=== PATIENT | male | born 1990 | race Caucasian/White ===

== ENCOUNTER 2018-07-16 14:14 | Inpatient (IN) | payer MEDICAID ==
[~2018-07-16] VITALS: Ht 172.7 cm; Wt 67.1 kg
[2018-07-16 14:18] VITALS: BP 124/66
[2018-07-16] MEDS ORDERED: NACL 0.9% 1,000 ML IV SCH (14:25)
--- NOTE | 2018-07-16 14:25 | NUR ---
27 YO M BIB MOTHER W/ C/O DIARRHEA X 3 DAYS. REPORTS GOING BETWEEN 5-8 TIMES A DAY. STATES IT IS SEVERE, AND EXCESSIVE. REPORTS DIZZINESS AND FEELING SHAKEY. PT REPORTS BL LOWER ABD PAIN THAT IS 5/10 CRAMPING THAT INTENSIFIES WHEN THE DIARRHEA OCCURS. REPORTS IT IS VERY THIN, WATERY, CLEAR DIARRHEA. NO FOUL-SMELL TO IT. DENIES ANY BLEEDING IN THE FECES. AFEBRILE AT THIS TIME. PT. REPORTS " I HAD A FEVER 3 DAYS AGO WHEN I STARTED FEELING SICK BUT NOT ANYMORE". ER MD MADE AWARE. SAFETY PRECAUTIONS IMPLEMENTED.WILL CONTINUE TO MONITOR.
--- NOTE | 2018-07-16 14:57 | NUR ---
PT. UNABLE TO PROVIDE URINE SAMPLE AT THIS TIME
[2018-07-16 15:20] LABS: BASOPHILS % (AUTO) 0.4 % (0.0-2.0); EOSINOPHILS % (AUTO) 0.1 % (0.0-4.0); HEMATOCRIT 44.1 % (36-52); HEMOGLOBIN 14.8 g/dL (12.0-18.0); LYMPHOCYTES # (AUTO) 3.1 K/uL (2.0-11.5); LYMPHOCYTES % (AUTO) 25.3 % (20.5-51.1); MEAN CORPUSCULAR HEMOGLOBIN 29 pg (27-31); MEAN CORPUSCULAR HGB CONC 34 g/dL (33-37); MEAN CORPUSCULAR VOLUME 86.3 fL (80-94); MONOCYTES # (AUTO) 1.5 K/uL (0.8-1.0); NEUTROPHILS # (AUTO) 7.7 K/uL (1.8-7.7); NEUTROPHILS % (AUTO) 62.2 % (42.2-75.2); PLATELET COUNT (AUTO) 254 K/uL (140-450); RED CELL DISTRIBUTION WIDTH 13.9 % (11.6-13.7); WHITE BLOOD COUNT (AUTO) 12.4 K/uL (4.8-10.8)
[2018-07-16] MEDS ORDERED: NACL 0.9% 1,500 ML IV ONE (15:55)
[2018-07-16] MEDS ORDERED: metroNIDAZOLE 500 MG/NS PREMIX 100 ML IV ONE (15:55)
[2018-07-16 15:56] LABS: CARBON DIOXIDE 26.3 mmol/L (21-32); CREATININE 0.9 mg/dL (0.7-1.3); POTASSIUM 3.3 mmol/L (3.5-5.1)
--- NOTE | 2018-07-16 16:00 | NUR ---
PT. RESTING COMFORTABLY IN BED, RR EVEN AND UNLABORED.VSS. WILL CONTINUE TO MONITOR.
[2018-07-16 16:02] LABS: ALBUMIN 2.7 g/dL (3.4-5.0); TOTAL BILIRUBIN 0.8 mg/dL (0.0-1.0)
[2018-07-16] MEDS ORDERED: DOCUSATE SODIUM 100 MG GELCAP PO PRN (16:05)
[2018-07-16] MEDS ORDERED: HYDROcodone/APAP 5/325 MG 1 TAB TAB PO PRN (16:05)
[2018-07-16] MEDS ORDERED: ONDANSETRON 4 MG/2 ML VIAL IM/IVP PRN (16:05)
[2018-07-16] MEDS ORDERED: ACETAMINOPHEN 325 MG TAB PO PRN (16:05)
--- NOTE | 2018-07-16 16:36 | NUR ---
PT TAKEN TO FLOOR BY ROSALVA CYR AND EMT MADIHA
--- NOTE | 2018-07-16 16:44 | NUR ---
Patient will be admitted to care of DR. DURANT . Admited to TELE . Will go to room 104B. Belongings list completed. Report to YARI Felipe RN .
--- NOTE | 2018-07-16 16:45 | NUR ---
RECEIVED PT FROM ER NURSE FLORI, PT AWAKE, ALERT. ON ROOM AIR, NO S/S OF RESPIRATORY DISTRESS NOTED. PT HAS IV TO RIGHT AC # 20 RUNNING FLAGYL AT 100 MLS/ HR AND 0.9 NS BOLUS OPEN WIDE ( PER FLORI, THIS IS THE SECOND BAG OF BOLUS). NO URINE SAMPLE YET, WILL WAIT FOR PT TO GET SOME URINE SAMPLE. CALL LIGHT IN REACH, INTRODUCED MYSELF, ORIENTED PT ENVIRONMENT, WILL CONTINUE TO MONITOR PT.
[2018-07-16] MEDS ORDERED: POTASSIUM CHLORIDE 10 MEQ TABER PO SCH (17:00)
[2018-07-16] MEDS: NACL 0.9% 1,000 ML IV SCH (17:20)
[2018-07-16 17:30] LABS: CHOL/HDL RATIO 10.9 (1-4.5); MAGNESIUM 2.2 mg/dL (1.8-2.4); THYROID STIMULATING HORMONE 1.23 uIU/mL (0.34-3.74)
--- NOTE | 2018-07-16 17:30 | NUR ---
PT LEFT FOR CT PER TECH VIA WHEELCHAIR
[2018-07-16] MEDS ORDERED: MARA150T PO (17:35)
[2018-07-16] MEDS ORDERED: NOR100 PO (17:35)
[2018-07-16] MEDS ORDERED: FENO145T36 PO (17:35)
[2018-07-16] MEDS ORDERED: [UNRECOGNIZED DRUG - CODE] PO (17:35)
[2018-07-16] MEDS ORDERED: DOLU50TA PO (17:35)
--- NOTE | 2018-07-16 17:45 | NUR ---
PT BACK TO ROOM.
[2018-07-16 18:00] VITALS: BP 103/64
--- NOTE | 2018-07-16 18:00 | NUR ---
URINE SAMPLE AND MRSA NARES COLLECTED AND SENT TO LAB.
[2018-07-16 18:26] LABS: BARBITURATE, URINE NEG. ng/ml (NEG <=200); BENZODIAZEPINE, URINE NEG. ng/mL (NEG <=200); CANNABINOID, URINE NEG. ng/mL (NEG <=50); COCAINE, URINE NEG. ng/mL (NEG <=300); OPIATE, URINE NEG. ng/mL (NEG <=2000); PHENCYCLIDINE SCREEN,URINE NEG. ng/mL (NEG <=25)
[2018-07-16 18:29] LABS: APPEARANCE,URINE CLEAR (CLEAR); BILIRUBIN,URINE SMALL (NEGATIVE); BLOOD, URINE SMALL (NEGATIVE); COLOR,URINE YELLOW (YELLOW); LEUKOCYTE ESTERASE ,URINE NEGATIVE (NEGATIVE); NITRITE, URINE NEGATIVE (NEGATIVE); UGLUCOSE NEGATIVE (NEGATIVE)
[2018-07-16 18:32] LABS: RBC,URINE 3-10 (FEW) /HPF (0-5); WBC,URINE NONE SEEN /HPF (0-5)
--- NOTE | 2018-07-16 18:56 | NUR ---
PT STAYING IN BED, NO S/S OF RESPIRATORY DISTRESS NOTED. PT STATED HE IS FINE AT THIS MOMENT.
--- NOTE | 2018-07-16 19:30 | NUR ---
RECEIVED PT FROM AM SHIFT NURSE YARI. PT ON TELE. PT IS AWAKE, ALERT, OX4, AMBULATORY . PT ON NPO EXCEPT MEDS. PT HAS NO SIGNS OF RESPIRATORY DISTRESS. PT DOES NOT C/O PAIN. PT SAID HE GOES TO THE BATHROOM FROM TIME TO TIME BECAUSE OF DIARRHEA. WITH IVF ON R AC G 20, INFUSING WELL.POC DISCUSSED AND REVIEWED WITH PT. VERBALIZED UNDERSTANDING. PT ORIENTED TO UNIT, PLACED ON LOW BED AND CALL LIGHT WITHIN EASY REACH.WILL CONTINUE TO MONITOR
--- NOTE | 2018-07-16 19:31 | NUR ---
HIV POSITIVE. WILL FOLLOW UP WITH NEXT SHIFT SINCE OFFICE CLOSED AT THIS TIME WITH [facility] TO GET DOCUMENTATION.
--- NOTE | 2018-07-16 20:20 | NUR ---
INFORMED ON DIET. PT WITH NEW ORDERS OF BRAT, CARRIED OUT. WILL CONTINUE TO MONITOR IF PT CAN TOLERATE BRAT PER DR'S ORDER.
[2018-07-16] MEDS: SELZENTRY PO SCH (20:58)
[2018-07-16] MEDS ORDERED: RITONAVIR 100 MG PO SCH (21:00)
[2018-07-16] MEDS ORDERED: DARUNAVIR ETHANOLATE PO SCH (21:00)
[2018-07-16] MEDS ORDERED: DOLUTEGRAVIR SODIUM 50 MG PO SCH (21:00)
[2018-07-16] MEDS ORDERED: MARAVIROC 150 MG PO SCH (21:00)
[2018-07-16] MEDS: PREZISTA 600 MG PO SCH (21:01)
[2018-07-16] MEDS: TIVICAY 50MG TAB PO SCH (21:02)
[2018-07-16] MEDS: NORVIR 100MG TAB PO SCH (21:02)
[2018-07-17] VITALS: BP 105/65
--- NOTE | 2018-07-17 | NUR ---
STOOL AND URINE SAMPLE SENT OUT TO LABORATORY. PT HAD 3X DIARRHEA OF THIS TIME.
[2018-07-17] MEDS: metroNIDAZOLE 500 MG/NS PREMIX 100 ML IV SCH ×3 (00:39→16:07)
[2018-07-17] MEDS ORDERED: LEVOFLOXACIN 500 MG/D5W PREMIX 100 ML IV SCH ×2 (01:30→21:00)
[2018-07-17] MEDS: NACL 0.9% 1,000 ML IV SCH ×3 (01:42→22:23)
[2018-07-17 04:00] VITALS: BP 110/60
--- NOTE | 2018-07-17 06:17 | NUR ---
PATIENT HAS BEEN SCREENED AND CATEGORIZED HIGH NUTRITION RISK. PATIENT WILL BE SEEN WITHIN 1-2 DAYS OF ADMISSION. 07/16/18-07/17/18 BUNNY SHELDON MS, RDN
--- NOTE | 2018-07-17 07:30 | NUR ---
RECEIVED PT ON AAOX4. NO SOB NOTED. NO C/O PAIN AT THIS TIME. IV TO RT AC PATENT AND INTACT. CHEST CLEAR. ABDOMEN SOFT, BOWEL SOUNDS PRESENT. PT ON CONTACT PRECAUTION FOR C-DIFF, WILL MONITOR FOR LOOSE STOOLS. INSTRUCTED PT TO CALL FOR ASSISTANCE, CALL LIGHT WITHIN REACH. PT VERBALIZED UNDERSTANDING.
[2018-07-17 07:33] LABS: ANION GAP 8.9 (8-16); CARBON DIOXIDE 27.7 mmol/L (21-32); CREATININE 0.6 mg/dL (0.7-1.3); POTASSIUM 3.6 mmol/L (3.5-5.1)
[2018-07-17 07:42] LABS: PHOSPHORUS 1.4 mg/dL (2.5-4.9)
[2018-07-17 08:00] VITALS: BP 104/57
--- NOTE | 2018-07-17 08:00 | NUR ---
PT TOLERATED BRAT DIET. NO N&V NOTED. PT HAD 2X LOOSE STOOLS SINCE THE START OF THIS SHIFT, PT STATED HIS STOOLS ARE STILL LOOSE YELLOW BUT HAS SOME YELLOW CHUNKS NOW. WILL CONTINUE TO MONITOR.
[2018-07-17 08:03] LABS: HEMOGLOBIN 11.5 g/dL (12.0-18.0); MEAN CORPUSCULAR HEMOGLOBIN 30 pg (27-31); MEAN CORPUSCULAR HGB CONC 34 g/dL (33-37); MEAN CORPUSCULAR VOLUME 87.4 fL (80-94); PLATELET COUNT (AUTO) 206 K/uL (140-450); RED CELL DISTRIBUTION WIDTH 13.9 % (11.6-13.7); WHITE BLOOD COUNT (AUTO) 9.5 K/uL (4.8-10.8)
[2018-07-17] MEDS ORDERED: FENOFIBRATE NANOCRYSTALLIZED PO SCH (09:00)
--- NOTE | 2018-07-17 09:00 | NUR ---
TELE BOX REMOVED, ORDERED PT IS ON MEDSURG STATUS NOW.
--- NOTE | 2018-07-17 09:06 | NUR ---
07/17/18 RD INITIAL ASSESSMENT COMPLETED PLEASE REFER TO NUTRITION ASSESSMENT UNDER CARE ACTIVITY FOR ESTIMATED NUTRITIONAL NEEDS. RD RECOMMENDATIONS: 1.CONTINUE ON BRAT DIET TOLERATED. 2. CONSIDER CHANGING DIET TO REGULAR DIET DIARRHEA IMPROVES. 3. RD WILL F/U 2-3 DAYS; HIGH RISK. BUNNY SHELDON MS, RDN
[2018-07-17] MEDS: FENOFIBRATE 48 MG TAB PO SCH (09:28)
[2018-07-17] MEDS: PREZISTA 600 MG PO SCH ×2 (09:28→20:52)
[2018-07-17] MEDS: LACTOBACILLUS RHAMNOSUS GG 1 EACH CAP PO SCH (09:29)
[2018-07-17] MEDS: NORVIR 100MG TAB PO SCH ×2 (09:30→20:50)
[2018-07-17 09:31] LABS: EOSINOPHILS % (MANUAL) 2 % (0-4); LYMPHOCYTES % (MANUAL) 28 % (20-46); MONOCYTES % (MANUAL) 12 % (5-12)
[2018-07-17] MEDS: SELZENTRY PO SCH ×2 (09:31→20:51)
[2018-07-17] MEDS: TIVICAY 50MG TAB PO SCH ×2 (09:32→20:49)
[2018-07-17 12:00] VITALS: BP 112/62
--- NOTE | 2018-07-17 12:30 | NUR ---
PT TOLERATED BRAT DIET. NO N&V NOTED.
--- NOTE | 2018-07-17 15:15 | NUR ---
PT AWAKE, TALKING TO FAMILY AT THE BEDSIDE. NO COMPLAINTS MADE.
[2018-07-17 16:00] VITALS: BP 96/64
--- NOTE | 2018-07-17 17:00 | NUR ---
C-DIFF RESULT IS NEGATIVE IN MICROBIOLOGY REPORT. CONTACT ISOLATION DISCONTINUED. PT NOTIFIED, VERBALIZED UNDERSTANDING.
--- NOTE | 2018-07-17 18:15 | NUR ---
PT TOLERATED REGULAR DIET. NO N&V NOTED. PT HAD TOTAL OF 3X LOOSE STOOLS WITH YELLOW-BROWN CHUNKS PER PT SINCE THE START OF SHIFT.
--- NOTE | 2018-07-17 19:02 | NUR ---
PT RESTING. NO SOB NOTED. NO COMPLAINTS MADE. WILL ENDORSE TO NEXT SHIFT NURSE FOR CONTINUITY OF CARE.
--- NOTE | 2018-07-17 19:20 | NUR ---
RECD. RESTING IN BED, AWAKE, A/OX4. RESPIRATION EVEN AND UNLABORED. IV OF NS AT 60 ML/HR INFUSING, RIGHT AC 20. CONVERSING WITH MOM AT THE BEDSIDE. INSTRUCTED TO CALL NURSE WHENEVER HAVING A BM TO SEE HOW IT LOOKS. PLAN OF CARE FOR THE SHIFT DISCUSSED. VERBALIZED UNDERSTANDING. DENIES PAIN 0/10. I
[2018-07-17 20:00] VITALS: BP 94/58
--- NOTE | 2018-07-17 20:02 | NUR ---
Patient's Plan of Care was discussed and reviewed with ALMOND BLANCHER HAND: KENDY
--- NOTE | 2018-07-17 20:50 | NUR ---
DUE PO MEDICATIONS GIVEN.
[2018-07-18] VITALS: BP 94/57
--- NOTE | 2018-07-18 | NUR ---
RESTING IN BED, STILL NO BM NOTED AT THIS TIME. WILL CONTINUE TO MONITOR FOR ANY DIARRHEA.
[2018-07-18] MEDS: metroNIDAZOLE 500 MG/NS PREMIX 100 ML IV SCH ×3 (00:45→15:58)
[2018-07-18] MEDS ORDERED: VANCOMYCIN PER PHARMACY MC PRN (07:00)
--- NOTE | 2018-07-18 07:05 | NUR ---
NO LOOSE BM FOR THE SHIFT, CONDITION REMAIN STABLE. ENDORSED TO ROSALVA ECHEVERRIA FOR CONTINUITY OF CARE.
[2018-07-18 07:22] LABS: HEMATOCRIT 34.4 % (36-52); HEMOGLOBIN 11.6 g/dL (12.0-18.0); MEAN CORPUSCULAR HEMOGLOBIN 29 pg (27-31); MEAN CORPUSCULAR HGB CONC 34 g/dL (33-37); MEAN CORPUSCULAR VOLUME 86.6 fL (80-94); PLATELET COUNT (AUTO) 211 K/uL (140-450); RED BLOOD CELL COUNT(AUTO) 3.97 MIL/uL (4.20-6.10); RED CELL DISTRIBUTION WIDTH 13.9 % (11.6-13.7); WHITE BLOOD COUNT (AUTO) 7.7 K/uL (4.8-10.8)
[2018-07-18 07:25] LABS: ANION GAP 9.7 (8-16); CARBON DIOXIDE 28.8 mmol/L (21-32); CREATININE 0.7 mg/dL (0.7-1.3); POTASSIUM 3.5 mmol/L (3.5-5.1)
[2018-07-18] MEDS ORDERED: VANCOMYCIN 1,000 MG in DEXTROSE 5% 250 ML IV SCH (07:30)
[2018-07-18 07:32] LABS: MAGNESIUM 1.9 mg/dL (1.8-2.4); PHOSPHORUS 1.6 mg/dL (2.5-4.9)
[2018-07-18 07:43] LABS: EOSINOPHILS % (MANUAL) 3 % (0-4); LYMPHOCYTES % (MANUAL) 34 % (20-46); MONOCYTES % (MANUAL) 13 % (5-12)
[2018-07-18 08:00] VITALS: BP 99/65
[2018-07-18] MEDS: LACTOBACILLUS RHAMNOSUS GG 1 EACH CAP PO SCH (09:40)
[2018-07-18] MEDS: FENOFIBRATE 48 MG TAB PO SCH (09:42)
[2018-07-18] MEDS: SODIUM PHOS / POTASSIUM PHOS 1 PKT PDR PO SCH ×2 (09:45→21:20)
[2018-07-18] MEDS: PREZISTA 600 MG PO SCH ×2 (09:47→21:21)
[2018-07-18] MEDS: TIVICAY 50MG TAB PO SCH ×2 (09:47→21:24)
[2018-07-18] MEDS: NORVIR 100MG TAB PO SCH ×2 (09:48→21:24)
[2018-07-18] MEDS: SELZENTRY PO SCH ×2 (09:48→21:25)
[2018-07-18] MEDS: VANCOMYCIN 1GM/DEXT 5% PREMIX 200 ML IV SCH ×2 (11:17→18:01)
[2018-07-18] MEDS ORDERED: diphenhydrAMINE 50 MG/ML VIAL IVP PRN (12:10)
--- NOTE | 2018-07-18 12:15 | NUR ---
DR MALHOTRA CALLED , ORDERED TO START LEVAQUIN ON PT. RESIDENT AWARE. WILL PUT NEW ORDER.
--- NOTE | 2018-07-18 12:43 | NUR ---
PT COMPLAINING OF ITCHING AT IV SITE. HAS REDNESS , HAS SLIGHT TENDERNESS AT THE SITE. ADMINISTERED BENADRYL TO PT ORDERED. TOLERATED WELL. WILL CONTINUE TO MONITOR PT.
--- NOTE | 2018-07-18 16:04 | NUR ---
CHECKED ON PT. LYING ON HIS BED. ADMINISTERED HIS MEDS ORDERED, TOLETRATED WELL. PT HAS NO ITCHING, GOT RESOLVED AFTER ADMINISTERING BENADRYL. NO SIGN OF DISTRESS NOTED. CALL LIGHT WITHIN REACH. WILL CONTINUE TO MONITOR PT.
[2018-07-18 16:07] VITALS: BP 99/59
--- NOTE | 2018-07-18 18:30 | NUR ---
ADMINISTERED VANCOMYCIN TO PT. TOLERATED WELL. NO SIGN OF DISTRESS NOTED. WILL CONTINUE TO MONITOR PT.
[2018-07-18] MEDS: NACL 0.9% 1,000 ML IV SCH (18:52)
--- NOTE | 2018-07-18 19:05 | NUR ---
ENDORSED PT TO PM NURSE AT BEDSIDE. PT STABLE , LYING COMFORTABLY IN BED.
--- NOTE | 2018-07-18 19:06 | NUR ---
RECD. RESTING IN BED, AWAKE, A/OX4. RESPIRATION EVEN AND UNLABORED. IVPB VANCOMYCIN INFUSING, 135 ML/HR AT RIGHT AC G20. WATCHING TV. DENIES DIARRHEA. PLAN OF CARE FOR THE SHIFT DISCUSSED. VERBALIZED UNDERSTANDING. DENIES PAIN 0/10.
--- NOTE | 2018-07-18 19:25 | NUR ---
CONVERSING WITH VISITORS AT THE BEDSIDE.
--- NOTE | 2018-07-18 19:30 | NUR ---
DR. MALHOTRA CAME AND CHECK PATIENT. VANCOMYCIN IVPB DISCONTINUED.
--- NOTE | 2018-07-18 20:00 | NUR ---
Patient's Plan of Care was discussed and reviewed with JE: ZOEY
--- NOTE | 2018-07-18 20:44 | NUR ---
NEW IV SITE PROVIDED ON RIGHT HAND DUE TO PT C/O OF PAIN IN RIGHT AC IV SITE. PT SAID SITE WAS LEAKING. NEW SITE PROVIDED ON R HAND WITH 24 GAUGE. IV INSERTION ATTEMPTED X1 SUCCESSFULLY. IV SITE FLUSHED PATENT.
--- NOTE | 2018-07-18 20:45 | NUR ---
IV INFILTRATED, NEW IV LINE INSERTED BY ROSALVA CHAVEZ AT THE RIGHT HAND G24.
[2018-07-18] MEDS ORDERED: LEVOFLOXACIN 500 MG/D5W PREMIX 100 ML IV SCH (21:00)
--- NOTE | 2018-07-18 21:24 | NUR ---
DUE PO MEDICATIONS GIVEN.
[2018-07-19] VITALS: BP 104/66
--- NOTE | 2018-07-19 | NUR ---
SLEEPING COMFORTABLY IN BED.
[2018-07-19] MEDS: metroNIDAZOLE 500 MG/NS PREMIX 100 ML IV SCH ×2 (00:53→08:38)
--- NOTE | 2018-07-19 02:30 | NUR ---
CHECKED PATIENT, AWAKE. NO COMPLAINT OF PAIN.
[2018-07-19 06:31] LABS: HEMOGLOBIN 12.2 g/dL (12.0-18.0); MEAN CORPUSCULAR HEMOGLOBIN 29 pg (27-31); MEAN CORPUSCULAR HGB CONC 34 g/dL (33-37); MEAN CORPUSCULAR VOLUME 86.2 fL (80-94); PLATELET COUNT (AUTO) 248 K/uL (140-450); RED BLOOD CELL COUNT(AUTO) 4.18 MIL/uL (4.20-6.10); RED CELL DISTRIBUTION WIDTH 14.1 % (11.6-13.7); WHITE BLOOD COUNT (AUTO) 7.9 K/uL (4.8-10.8)
--- NOTE | 2018-07-19 06:50 | NUR ---
AWAKE IN BED. TOLERATED ALL MEDICATIONS GIVEN DURING SHIFT. CONDITION REMAIN STABLE. WILL ENDORSE TO AM NURSE FOR CONTINUITY OF CARE.
[2018-07-19 07:09] LABS: ANION GAP 10.7 (8-16); CARBON DIOXIDE 29.7 mmol/L (21-32); CREATININE 0.7 mg/dL (0.7-1.3); POTASSIUM 3.4 mmol/L (3.5-5.1)
--- NOTE | 2018-07-19 07:10 | NUR ---
ENDORSED TO ROSALVA BOWLING FOR CONTINUITY OF CARE.
[2018-07-19 07:15] LABS: MAGNESIUM 1.6 mg/dL (1.8-2.4)
--- NOTE | 2018-07-19 07:25 | NUR ---
REPORT RECEIVED FROM [employer] WORKER NURSE, PT AWAKE ALERT, RESP EVEN UNLABORED, SKIN WARM DRY COLOR WNL, POC REVIEWED, PT DENIES PAIN OR DISCOMFORT, ALL SAFETY MEASURES IN PLACE, NO IMMEDIATE NEEDS AT THIS TIME, WILL CONTINUE TO MONITOR.
[2018-07-19] MEDS ORDERED: LEVO500T98 PO (07:57)
[2018-07-19 08:00] VITALS: BP 106/61
[2018-07-19 08:07] LABS: EOSINOPHILS % (MANUAL) 2 % (0-4); LYMPHOCYTES % (MANUAL) 50 % (20-46); MONOCYTES % (MANUAL) 16 % (5-12)
[2018-07-19] MEDS ORDERED: POTASSIUM CHLORIDE 10 MEQ TABER PO SCH (08:15)
[2018-07-19] MEDS ORDERED: MAGNESIUM OXIDE 400 MG TAB PO SCH (08:30)
[2018-07-19] MEDS: SODIUM PHOS / POTASSIUM PHOS 1 PKT PDR PO SCH (08:39)
[2018-07-19] MEDS: LACTOBACILLUS RHAMNOSUS GG 1 EACH CAP PO SCH (08:39)
[2018-07-19] MEDS: FENOFIBRATE 48 MG TAB PO SCH (08:40)
[2018-07-19] MEDS: TIVICAY 50MG TAB PO SCH (08:43)
[2018-07-19] MEDS: PREZISTA 600 MG PO SCH (08:44)
[2018-07-19] MEDS: SELZENTRY PO SCH (08:45)
[2018-07-19] MEDS: NORVIR 100MG TAB PO SCH (08:47)
--- NOTE | 2018-07-19 11:39 | NUR ---
DC INSTRUCTION AND RX GIVEN AND EXPLAINED TO PT, PT VERBALIZED FULL UNDERSTANDING, IV DC'D, CATH TIP INTACT, BLEEDING CONTROLLED, PT VAHE WELL, AWAITING FOR RIDE.
--- NOTE | 2018-07-19 12:05 | NUR ---
FAMILY AT BEDSIDE, DC HOME NOW, PT AMBULATES WITH STEADY GAIT.
== END 2018-07-19 12:05 | disposition home or self-care (01) | DRG 720 ==
LOC: MED 14:14 → MTU 16:07
PROVIDERS: ADMIT General Practice; ATTEND General Practice
DX: A41.9 Sepsis, unspecified organism (principal); E43 Unspecified severe protein-calorie malnutrition; E87.8 Other disorders of electrolyte and fluid balance, not elsewhere classified; E86.0 Dehydration; E87.1 Hypo-osmolality and hyponatremia; E87.6 Hypokalemia; A09 Infectious gastroenteritis and colitis, unspecified; E83.51 Hypocalcemia; D64.9 Anemia, unspecified; R91.1 Solitary pulmonary nodule; E83.39 Other disorders of phosphorus metabolism; Z68.22 Body mass index [BMI] 22.0-22.9, adult; Z83.0 Family history of human immunodeficiency virus [HIV] disease; Z21 Asymptomatic human immunodeficiency virus [HIV] infection status
CPT/HCPCS: 36415; 71045; 80048; 80053; 80202; 80305; 81001; 83036; 83605; 83690; 83735; 84100; 84443; 85025; 85610; 85730; 87040; 87045; 87070; 87081; 87086; 87177; 87186; 89055; 93005; 99285; J0696; J1200; J1956; J3370; J3490; J7030; J7060; Q0092